=== PATIENT | female | born 1945 | race Caucasian/White ===

== ENCOUNTER → 2016-11-07 | Outpatient (CLI) | payer MEDICARE, OTHER ==
[~2016-11-07] MED LIST: ACET-2321 PO; ASPI-1115 PO; BENA10TA46 PO; CHOL200014 PO; DOCU250C77 PO; IOHEXOL 180 MG/ML 20ml INJECTION ONE; LEVO50TA11 PO; LIDOCAINE 1% (10mg/ml) 5ml VIAL ONE; MULT-806 PO; MethylPREDNISolone ACETATE 40mg/1ml ONE; OXYC-544 PO; POLY17PO6 PO; TRAM50TA4 PO
--- NOTE | 2016-11-07 09:54 | DI ---
Indication:ITS.REASON: M54.16 RADICULOPATHY; M54.5 LBP Procedure:EPIDURAL INJ.SPINE W FLUO CATH LUMBAR EPIDURAL INJECTION: The patient has low back and radicular pain. The patient has not had any previous epidurals. The details of the procedure, including the benefits, risks, and alternatives were explained to the patient. All of their questions were answered. They stated that they understood and wished to proceed. Informed consent was then obtained. A pre-procedural timeout was performed to confirm the correct patient and procedure. Utilizing aseptic technique, local lidocaine anesthetic, and fluoroscopic guidance throughout, a 22-gauge spinal needle was directed into the lumbar epidural space via an interlaminar approach at the L5-S1 level. Contrast was injected to assure proper positioning of the needle tip. A fluoroscopic image was then taken and archived. Subsequently, 120 mg Depo-Medrol was injected into the epidural space. The patient tolerated the procedure well. IMPRESSION: Successful lumbar epidural steroid injection. Fluoroscopy dose: 13.38 mGy (Cumulative air kerma) Lan Alford RPA/ABDIRASHID performed this under my personal supervision. .
== END ==
LOC: IMA 09:04
PROVIDERS: ATTEND Nurse Practitioner
DX: M54.16 Radiculopathy, lumbar region (principal); M54.5 Low back pain
CPT/HCPCS: 62323; J1030; Q9965